=== PATIENT | female | born 1960 | race Caucasian/White ===

== ENCOUNTER 2024-04-03 11:32 | Emergency (ER) | payer MEDICARE ==
[~2024-04-03] VITALS: Ht 154.9 cm; Wt 80.8 kg
[2024-04-03] MEDS ORDERED: CEPH-585 PO (14:01)
[2024-04-03] MEDS: cephalexin 250mg capsule PO ONE (14:10)
[2024-04-03 14:26] VITALS: BP 179/93; PULSE 70; RESP 17; TEMP 97.9; O2SAT 97
== END 2024-04-03 14:29 | disposition home or self-care (01) ==
LOC: ER 11:33
DX: S40.861A Insect bite (nonvenomous) of right upper arm, initial encounter (principal); L03.113 Cellulitis of right upper limb; Z79.1 Long term (current) use of non-steroidal anti-inflammatories (NSAID); W57.XXXA Bitten or stung by nonvenomous insect and other nonvenomous arthropods, initial encounter; Y93.89 Activity, other specified; Y92.89 Other specified places as the place of occurrence of the external cause; Y99.8 Other external cause status
CPT/HCPCS: 99283